=== PATIENT | female | born 1925 | race Caucasian/White ===

== ENCOUNTER → 2016-05-02 | Outpatient (REF) | payer MEDICARE, MEDICAID ==
[~2016-05-02] MED LIST: AMLO25TA PO; ASPI325T PO; BISO10TA PO; BISO5TAB5 PO; BLOOD PRESSURE PILL PO; CHLO25TA PO; COUM2.5T11 PO; FLEEENE4 PR; IPRASOL4 NEB; LORT5TAB PO; MILKSUS PO; MIRA3350 PO; MULTCAP PO; SENO8.6T2 PO; SERT-141 PO; TYLE325T5 PO; VITMTA PO; ZOLO50TA PO
[2016-05-02 09:28] LABS: CALCIUM LEVEL 8.5 MG/DL (8.8-10.2); CREATININE FOR GFR 1.15 MG/DL (0.55-1.02); GLOMERULAR FILTRATION RATE 47.4 (>32); POTASSIUM SERUM 4.7 MEQ/L (3.5-5.1)
== END ==
LOC: SKLAB4 10:05
PROVIDERS: ATTEND Family Medicine
DX: I50.9 Heart failure, unspecified (principal)

== ENCOUNTER → 2016-07-25 | Outpatient (REF) | payer MEDICARE, MEDICAID ==
[~2016-07-25] MED LIST changes: -SERT-141 PO; +SERT50TA PO
[2016-07-25 10:48] LABS: CALCIUM LEVEL 8.6 MG/DL (8.8-10.2); CREATININE FOR GFR 0.98 MG/DL (0.55-1.02); POTASSIUM SERUM 4.1 MEQ/L (3.5-5.1)
== END ==
LOC: SKLAB4 10:34
PROVIDERS: ATTEND Family Medicine
DX: I50.9 Heart failure, unspecified (principal)

== ENCOUNTER → 2016-10-24 | Outpatient (REF) | payer MEDICARE, MEDICAID ==
[~2016-10-24] MED LIST changes: -COUM2.5T11 PO; +COUM2.5T17 PO; -SENO8.6T2 PO; +SENO8.6T5 PO
[2016-10-24 08:41] LABS: CALCIUM LEVEL 8.8 MG/DL (8.8-10.2); CREATININE FOR GFR 1.1 MG/DL (0.55-1.02); GLOMERULAR FILTRATION RATE 49.8 (>32)
== END ==
LOC: SKLAB4 09:56
PROVIDERS: ATTEND Family Medicine
DX: I10 Essential (primary) hypertension (principal); F03.90 Unspecified dementia, unspecified severity, without behavioral disturbance, psychotic disturbance, mood disturbance, and anxiety

== ENCOUNTER → 2017-01-23 | Outpatient (REF) | payer MEDICARE, MEDICAID ==
[2017-01-23 09:01] LABS: CALCIUM LEVEL 8.4 MG/DL (8.8-10.2); CREATININE FOR GFR 1.11 MG/DL (0.55-1.02); GLOMERULAR FILTRATION RATE 49.3 (>32); POTASSIUM SERUM 4.7 MEQ/L (3.5-5.1)
== END ==
LOC: SKLAB4 09:54
PROVIDERS: ATTEND Family Medicine
DX: I50.9 Heart failure, unspecified (principal)

== ENCOUNTER → 2017-04-24 | Outpatient (REF) | payer MEDICARE, MEDICAID ==
[2017-04-24 10:29] LABS: ANION GAP 6 MEQ/L (8-16); BLOOD UREA NITROGEN 21 MG/DL (7-18); CALCIUM LEVEL 8.6 MG/DL (8.8-10.2); CARBON DIOXIDE LEVEL 30 MEQ/L (21-32); CHLORIDE LEVEL 107 MEQ/L (98-107); CREATININE FOR GFR 0.99 MG/DL (0.55-1.02); GLOMERULAR FILTRATION RATE 56.2 (>32); GLUCOSE, FASTING 124 MG/DL (83-110); POTASSIUM SERUM 3.9 MEQ/L (3.5-5.1); SODIUM LEVEL 143 MEQ/L (136-145)
== END ==
LOC: SKLAB4 12:23
DX: I50.9 Heart failure, unspecified (principal)
CPT/HCPCS: 36415